=== PATIENT | female | born 1995 ===

== ENCOUNTER 2016-07-20 15:18 | Emergency (ER) | payer MEDICAID ==
[2016-07-20 15:19] VITALS: BMI 24.0
[2016-07-20 16:31] LABS: BASO # 0.1 K/uL (0.0-0.2); BASO % 0.9 % (0.0-2.0); EOS # 0.1 K/uL (0.0-0.7); EOS % 1.6 % (0.0-4.0); HEMATOCRIT 32.7 % (34.0-47.0); LYMPH # 1.6 K/uL (1.0-4.3); LYMPH % 28.1 % (20.0-40.0); MEAN CELL VOLUME 92.9 fl (81.0-99.0); MEAN CORPUSCULAR HEMOGLOBIN 30.6 pg (27.0-31.0); MEAN PLATELET VOLUME 8.8 fl (7.2-11.7); MONO # 0.4 K/uL (0.0-0.8); MONO % 7.7 % (0.0-10.0); NEUT # 3.4 K/uL (1.8-7.0); NEUT % 61.7 % (50.0-75.0); RED CELL DISTRIBUTION WIDTH 12.3 % (11.5-14.5); WHITE BLOOD COUNT 5.6 K/uL (4.8-10.8)
[2016-07-20 16:46] LABS: ALB/GLOB RATIO 1.3 (1.0-2.1); ALKALINE PHOSPHATASE 71 U/L (38-126); ALT/SGPT 28 U/L (9-52); AST/SGOT 19 U/L (14-36); BILIRUBIN,TOTAL 0.3 mg/dl (0.2-1.3); BLOOD UREA NITROGEN 12 mg/dl (7-17); CALCIUM 9.2 mg/dL (8.4-10.2); CARBON DIOXIDE 25 mmol/L (22-30); CHLORIDE 105 mmol/L (98-107); GFR AFRICAN-AMERICAN > 60; GLUCOSE,RANDOM 113 mg/dL (65-105); LIPASE 47 U/L (23-300); POTASSIUM 3.3 MMOL/L (3.6-5.0); SODIUM 140 mmol/l (132-148); TOTAL PROTEIN 6.9 G/DL (6.3-8.2)
--- NOTE | 2016-07-20 16:49 | ED PDOC ---
HPI: Chest Pain Time Seen by Provider: 07/20/16 15:43 Chief Complaint (Nursing): Chest Pain Chief Complaint (Provider): Chest Pain History Per: Patient History/Exam Limitations: no limitations Onset/Duration Of Symptoms: Days (x3 days) Current Symptoms Are (Timing): Still Present Additional Complaint(s): 20 y/o female presents to the emergency department with a complaint of a left- sided chest pain and shortness of breath ongoing x3 days. Associated with mild nasal congestion and a muffled voice. Reports pain radiates from the upper chest down to the left upper quadrant of the abdomen region and left side of the back. Described shortness of breath worsens when she exerts herself and pleuritic when she takes a deep breath. denies cough and fever. Denies leg swelling, recent surgeries, or immobilization. Of note, patient had an upper respiratory infection (cough/cold) about 2 weeks ago that she feels she had gotten better. PMD: Dr. Troncoso Past Medical History Reviewed: Historical Data, Nursing Documentation, Vital Signs Vital Signs: Last Vital Signs Temp 98.2 F 07/20/16 15:34 Pulse 88 07/20/16 15:34 Resp 20 07/20/16 15:34 BP 108/59 L 07/20/16 15:34 Pulse Ox 99 07/20/16 19:42 - Medical History PMH: Kidney Stones, Chronic Kidney Disease (1 functional kidney - left) Denies: HIV - Surgical History Other surgeries: Bicornuate uterus repaired same time ovarian cyst resection and single kidney; stones in past that required stent (Left side) - Family History Family History: States: Unknown Family Hx - Social History Current smoker - smoking cessation education provided: Yes ("vapes") Alcohol: Occasional Drugs: Denies - Home Medications Home Medications: Ambulatory Orders Medication Instructions Recorded Ciprofloxacin HCl [Cipro] 500 mg PO BID #14 tab 01/06/15 oxyCODONE/Acetaminophen [Percocet 1 ea PO Q4 PRN #20 tab 01/06/15 5/325 mg Tab] Ondansetron [Zofran] 4 mg PO Q8H PRN #5 tab 05/30/15 Naproxen [Naprosyn] 1 tab PO BID PRN #60 tab 11/16/15 oxyCODONE/Acetaminophen [Percocet 1 tab PO QID PRN #20 tab 11/16/15 5/325 mg Tab] Lidocaine 5% [Lidoderm] 1 ea TD DAILY #30 patch 12/13/15 traMADol [Ultram] 50 mg PO Q6 PRN #25 tab 12/13/15 Famotidine [Pepcid] 20 mg PO Q12 #20 tab 03/18/16 Sulfamethoxazole/Trimethoprim 1 tab PO BID #20 tab 03/18/16 [Bactrim DS 800 mg-160 mg] Cyclobenzaprine [Flexeril] 5 mg PO Q8 PRN #10 tab 07/20/16 Naproxen [Naprosyn] 1 tab PO BID PRN #60 tab 07/20/16 - Allergies Allergies/Adverse Reactions: Allergies Allergy/AdvReac Type Severity Reaction Status Date / Time No Known Allergies Allergy Verified 05/29/15 17:48 Review of Systems ROS Statement: Except As Marked, All Systems Reviewed And Found Negative Constitutional: Negative for: Fever ENT: Positive for: Nose Congestion Cardiovascular: Positive for: Chest Pain (Left-sided; upper region) Respiratory: Positive for: Shortness of Breath. Negative for: Cough Gastrointestinal: Positive for: Abdominal Pain (LUQ) Musculoskeletal: Positive for: Back Pain (left sided upper region back pain). Negative for: Other (No leg swelling) Physical Exam - Reviewed Nursing Documentation Reviewed: Yes Vital Signs Reviewed: Yes - Physical Exam Appears: Positive for: Non-toxic, No Acute Distress (Tired appearing) Head Exam: Positive for: ATRAUMATIC, NORMOCEPHALIC Skin: Positive for: Normal Color, Warm, Dry ENT: Positive for: Normal ENT Inspection. Negative for: Pharyngeal Erythema Neck: Positive for: Normal, Supple Cardiovascular/Chest: Positive for: Regular Rate, Rhythm. Negative for: Murmur , Bradycardia Respiratory: Positive for: Normal Breath Sounds. Negative for: Accessory Muscle Use, Respiratory Distress Gastrointestinal/Abdominal: Positive for: Normal Exam, Soft. Negative for: Tenderness Back: Positive for: Normal Inspection. Negative for: L CVA Tenderness, R CVA Tenderness Extremity: Positive for: Normal ROM. Negative for: Pedal Edema Lymphatic: Negative for: Adenopathy Neurologic/Psych: Positive for: Alert, Oriented. Negative for: Motor/Sensory Deficits - Laboratory Results Result Diagrams: 07/20/16 16:00 07/20/16 16:00 - ECG ECG: Positive for: Interpreted By Me ECG Rhythm: Positive for: Normal QRS, Normal ST Segment, Sinus Rhythm O2 Sat by Pulse Oximetry: 99 (RA) Pulse Ox Interpretation: Normal Medical Decision Making Medical Decision Making: Time: 15:53 Initial impression: Left sided chest Pain differential include pneumonia, pulmonary embolism, congestive heart failure, pneumothorax, Renal calculi and costochondritis Initial plan: --Electrocardiogram Stat --B-Type Natriuretic Peptide --COMP Metabolic Panel --Drug Screen, Urine stat --Lipase Stat --Magnesium Stat --Phosphorous STAT --Troponin I Stat --ED Urine Dipstick (POC) --ED Urine (POC) --EKG-ED (EDNURTX) STAT --CBC w/ differential --D Dimer (COAG) Stat --Chest Two Views (PA/LAT) --Toradol 15 mg IV Stat --IV Insertion --Renal (US) Stat --Revaluation Ek bpm normal sinus non specific T waves abnormalities with incomplete right bundle branch block (RBB) Accession No. : [id number] Patient Name / ID : DARI STANFORD / [id number] Exam Date : 07/20/2016 17:34:38 ( Approved ) Study Comment : Sex / Age : F / 20Y Creator : Stephan Ayala Dictator : Stephan Ayala Deckhand Maintenance : Certified Pedorthotist : Stephan Ayala Approver2 : Report Date : 07/20/2016 18:31:33 My Comment : PROCEDURE: Ultrasound of the Kidneys HISTORY: LEFT flank pain COMPARISON: Comparison is made to the previous CT of the abdomen and pelvis dated 2016. TECHNIQUE: Sonogram of the kidneys. FINDINGS: RIGHT KIDNEY: The right kidney was also not visualized in this study . LEFT KIDNEY: Measures: 14.4 x 4.8 x 6.7 cm. Normal in size, contour and echogenicity. No stone, solid mass lesion or hydronephrosis visualized. OTHER FINDINGS: None. 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 Compensated mildly enlarged left kidney. No evidence of hydronephrosis or obstructing stone. Accession No. : [id number] Patient Name / ID : DARI STANFORD / [id number] Exam Date : 07/20/2016 17:09:56 ( Approved ) Study Comment : Sex / Age : F / 20Y Creator : Adbi Lima MD Dictator : Abdi Lima MD Deckhand Maintenance : Certified Pedorthotist : Abdi Lima MD Approver2 : Report Date : 07/20/2016 17:23:59 My Comment : HISTORY: cp COMPARISON: Comparison chest dated 01/03/2015. TECHNIQUE: Chest PA and lateral FINDINGS: LUNGS: No active pulmonary disease. PLEURA: No significant pleural effusion identified. No pneumothorax apparent. CARDIOVASCULAR: Normal. OSSEOUS STRUCTURES: Very minor multilevel degenerative spondylosis of the mid thoracic spine. There also appears be some levoscoliosis centered in the lower thoracic region. Dedicated scoliosis series suggested. VISUALIZED UPPER ABDOMEN: Normal. OTHER FINDINGS: None. IMPRESSION: No acute cardiopulmonary disease. See above discussion for additional findings details and recommendations. Labs demonstrate mild hypokalemia and anemia. Otherwise no clinically significant lab abnormalities. DW pt findings and plan of care. Scribe Attestation: Documented by Lakshmi Young, acting as a scribe for Ivania Garcia MD. Provider Scribe Attestation: All medical record entries made by the Scribe were at my direction and personally dictated by me. I have reviewed the chart and agree that the record accurately reflects my personal performance of the history, physical exam, medical decision making, and the department course for this patient. I have also personally directed, reviewed, and agree with the discharge instructions and disposition. Disposition - Clinical Impression Clinical Impression: Chest pain, Hypokalemia, Anemia Counseled Patient/Family Regarding: Studies Performed, Diagnosis, Need For Followup, Rx Given - Disposition Referrals: Gertrude Troncoso MD [Family Provider] - 07/23/16 (SEE DR TRONCOSO EARLY NEXT WEEK.) Disposition: Routine/Home Disposition Time: 20:00 Condition: IMPROVED Prescriptions: Cyclobenzaprine [Flexeril] 5 mg PO Q8 PRN #10 tab PRN Reason: muscle spasm Naproxen [Naprosyn] 1 tab PO BID PRN #60 tab PRN Reason: Pain Instructions: Costochondritis (ED), Anemia (ED), Hypokalemia (ED) Forms: [facility] School/Work Excuse
--- NOTE | 2016-07-20 17:25 | RAD ---
HISTORY: cp COMPARISON: Comparison chest dated 01/03/2015. TECHNIQUE: Chest PA and lateral FINDINGS: LUNGS: No active pulmonary disease. PLEURA: No significant pleural effusion identified. No pneumothorax apparent. CARDIOVASCULAR: Normal. OSSEOUS STRUCTURES: Very minor multilevel degenerative spondylosis of the mid thoracic spine. There also appears be some levoscoliosis centered in the lower thoracic region. Dedicated scoliosis series suggested. VISUALIZED UPPER ABDOMEN: Normal. OTHER FINDINGS: None. IMPRESSION: No acute cardiopulmonary disease. See above discussion for additional findings details and recommendations.
[2016-07-20 17:38] LABS: PHOSPHOROUS 4.1 mg/dl (2.5-4.5)
[2016-07-20] MEDS ORDERED: K-Lyte 25meq EF Tab PO ONE ×2 (18:09→19:39)
--- NOTE | 2016-07-20 18:33 | US ---
PROCEDURE: Ultrasound of the Kidneys HISTORY: LEFT flank pain COMPARISON: Comparison is made to the previous CT of the abdomen and pelvis dated 03/18/2016. TECHNIQUE: Sonogram of the kidneys. FINDINGS: RIGHT KIDNEY: The right kidney was also not visualized in this study . LEFT KIDNEY: Measures: 14.4 x 4.8 x 6.7 cm. Normal in size, contour and echogenicity. No stone, solid mass lesion or hydronephrosis visualized. OTHER FINDINGS: None. 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 Compensated mildly enlarged left kidney. No evidence of hydronephrosis or obstructing stone.
[2016-07-20 21:27] VITALS: BP 119/67; PULSE 74; RESP 16; TEMP 98.4; O2SAT 98
--- NOTE | 2016-07-22 00:20 | CARD ---
APPROVED REPORT EKG Measurement Heart [id number] <Conclusion> Normal sinus rhythm Possible Left atrial enlargement Incomplete right bundle branch block Nonspecific T wave abnormality Prolonged QT Abnormal ECG
== END 2016-07-20 21:24 | disposition home or self-care (01) ==
LOC: H.ER 15:18
DX: R07.9 Chest pain, unspecified (principal); E87.6 Hypokalemia; D64.9 Anemia, unspecified; N18.9 Chronic kidney disease, unspecified; F17.200 Nicotine dependence, unspecified, uncomplicated; I45.10 Unspecified right bundle-branch block; R06.02 Shortness of breath

== ENCOUNTER 2016-08-31 08:56 | Emergency (ER) | payer MEDICAID ==
[2016-08-31 08:57] VITALS: BMI 24.0
[2016-08-31 10:22] LABS: HEMOGLOBIN 12.1 g/dL (12.0-16.0); MEAN CELL VOLUME 91.3 fl (81.0-99.0); MEAN CORPUSCULAR HEMOGLOBIN 30.9 pg (27.0-31.0); MEAN CORPUSCULAR HGB CONC 33.8 g/dL (33.0-37.0); RBC 3.93 Mil/uL (3.80-5.20); RED CELL DISTRIBUTION WIDTH 12.8 % (11.5-14.5); WHITE BLOOD COUNT 6.5 K/uL (4.8-10.8)
[2016-08-31 10:34] LABS: ALB/GLOB RATIO 1.4 (1.0-2.1); ALBUMIN 4.2 g/dL (3.5-5.0); ALT/SGPT 32 U/L (9-52); AST/SGOT 17 U/L (14-36); BLOOD UREA NITROGEN 9 mg/dl (7-17); CALCIUM 9.5 mg/dL (8.4-10.2); GFR AFRICAN-AMERICAN > 60; GFR NON-AFRICAN AMERICAN > 60
--- NOTE | 2016-08-31 10:47 | ED PDOC ---
HPI: Female Pain Time Seen by Provider: 08/31/16 09:48 Chief Complaint (Nursing): Female Genitourinary Chief Complaint (Provider): suprapubic pain History Per: Patient History/Exam Limitations: no limitations Onset/Duration Of Symptoms: Intermittent Episodes Current Symptoms Are (Timing): Still Present Severity: Severe Pain Scale Rating Of: 8 Quality Of Discomfort: Other (pulling) Associated Symptoms: Nausea. denies: Fever, Chills, Vomiting, Diarrhea, Loss Of Appetite, Urinary Symptoms Additional Complaint(s): 20 yo F presents to the ED with a 4 day history of lower abdominal pain for the previous day. Pain is described as 8/10, a pulling sensation, localized to a midline suprapubic scar that is non radiating. She also shares that she feels "bloated" which she also associates to her pain. She states feeling nauseous since the pain began. Aggravating factors include bearing down, lifting heavy objects; Alleviating factor was Naproxen, however, she shares that medication has been wearing off after a few hours and only minimally helped. She denies fevers/chills, vomiting, diarrhea, constipation, diaphoresis , vaginal discharge, history of sti, incontinence, foul odor. She is sexually active and shares of using protection consistently. She has a history of lower abdominal surgery for pain at the age of 13, but due to an unknown cause. She also has an atrophied R kidney. Since then, she has shared of similar pain. Menses was proximately 14 days ago and regular. However, she shares that her abdominal pain has not been associated with her menses. Last was 2 years ago. No abnormalities during gestation and no complications throughout delivery. bundle breaker: last seen 1 year ago. No longer her provider due to insurance. ([employer]) Abnormal Vaginal Bleeding: No Last Menstral Period: 08/15/16 : 1 Para: 1 Past Medical History Reviewed: Historical Data, Nursing Documentation, Vital Signs Vital Signs: Last Vital Signs Temp 98.8 F 08/31/16 09:19 Pulse 95 H 08/31/16 09:19 Resp 18 08/31/16 09:19 BP 118/64 08/31/16 09:19 Pulse Ox 99 08/31/16 09:19 - Medical History PMH: Kidney Stones, Chronic Kidney Disease (1 functional kidney - left) Denies: HIV - Family History Family History: States: Unknown Family Hx - Home Medications Home Medications: Ambulatory Orders Medication Instructions Recorded Ciprofloxacin HCl [Cipro] 500 mg PO BID #14 tab 01/06/15 oxyCODONE/Acetaminophen [Percocet 1 ea PO Q4 PRN #20 tab 01/06/15 5/325 mg Tab] Ondansetron [Zofran] 4 mg PO Q8H PRN #5 tab 05/30/15 Naproxen [Naprosyn] 1 tab PO BID PRN #60 tab 11/16/15 oxyCODONE/Acetaminophen [Percocet 1 tab PO QID PRN #20 tab 11/16/15 5/325 mg Tab] Lidocaine 5% [Lidoderm] 1 ea TD DAILY #30 patch 12/13/15 traMADol [Ultram] 50 mg PO Q6 PRN #25 tab 12/13/15 Famotidine [Pepcid] 20 mg PO Q12 #20 tab 03/18/16 Sulfamethoxazole/Trimethoprim 1 tab PO BID #20 tab 03/18/16 [Bactrim DS 800 mg-160 mg] Cyclobenzaprine [Flexeril] 5 mg PO Q8 PRN #10 tab 07/20/16 Naproxen [Naprosyn] 1 tab PO BID PRN #60 tab 07/20/16 Ibuprofen [Motrin Tab] 600 mg PO Q8H #25 tab 08/31/16 - Allergies Allergies/Adverse Reactions: Allergies Allergy/AdvReac Type Severity Reaction Status Date / Time No Known Allergies Allergy Verified 08/31/16 09:24 Review of Systems ROS Statement: Except As Marked, All Systems Reviewed And Found Negative (see HPI) Physical Exam - Reviewed Nursing Documentation Reviewed: Yes Vital Signs Reviewed: Yes - Physical Exam Appears: Positive for: Non-toxic, No Acute Distress Head Exam: Positive for: ATRAUMATIC, NORMOCEPHALIC Skin: Positive for: Normal Color, Warm, Dry Eye Exam: Positive for: Normal appearance, EOMI, PERRL Neck: Positive for: Normal, Painless ROM Cardiovascular/Chest: Positive for: Regular Rate, Rhythm. Negative for: Edema Respiratory: Positive for: Normal Breath Sounds. Negative for: Rales, Wheezing , Respiratory Distress Gastrointestinal/Abdominal: Positive for: Normal Exam, Soft, Tenderness (mild ) Pelvic Exam: Positive for: External Exam Normal, No Cerv. Motion Tender, No Masses, Tender Adnexa (Right), Other (minimal amount of white fluid seen). Negative for: Active Bleeding, Blood, Discharge Back: Negative for: L CVA Tenderness, R CVA Tenderness Extremity: Positive for: Normal ROM. Negative for: Pedal Edema, Calf Tenderness Neurologic/Psych: Positive for: Alert, executive vice president II-XII, Oriented - Laboratory Results Result Diagrams: 08/31/16 10:14 08/31/16 10:14 - ECG O2 Sat by Pulse Oximetry: 99 - Progress ED Course And Treament: 20 yo F presents to the ED with a 4 day history of lower abdominal pain for the previous day -CBC -CMP -Upreg -Udip -Pelvic U/S -L Renal U/S -Toradol 15mg IVP x1 Update 1230: -Pain improved Update 1300: -Renal U/S: no abnormalities seen -Transvaginal U/S: Uterus didelphys. No fibroids or other mass lesion seen. No significant endometrial abnormality identified. No sonographic abnormality in the pelvis. -To be discharged home Condition: Re-examined, Improved Disposition - Clinical Impression Clinical Impression: Abdominal cramps - Patient ED Disposition Is Patient to be Admitted: No - Disposition Disposition Time: 13:30 Condition: GOOD Additional Instructions: Continue with Ibuprofen as needed -Take w food. -Drink plenty of water per day. Follow up with [facility] within 1 week See PMD within 2-3 days of discharge Prescriptions: Ibuprofen [Motrin Tab] 600 mg PO Q8H #25 tab
--- NOTE | 2016-08-31 12:42 | US ---
PROCEDURE: Ultrasound of the Kidneys HISTORY: pelvic pain h/o 1 kidney COMPARISON: Ultrasound from 07/20/[address] abdomen and pelvis from 03/18/2016. TECHNIQUE: Sonogram of the kidneys. FINDINGS: RIGHT KIDNEY: Not visualized in the renal fossa. LEFT KIDNEY: Measures: 15.0 cm. Enlarged with normal contour and echogenicity. No stone, solid mass lesion or hydronephrosis visualized. OTHER FINDINGS: None. IMPRESSION: Right kidney is not visualized in the right renal fossa. Compensatory hypertrophy of the left kidney. No significant sonographic abnormality in the left kidney.
--- NOTE | 2016-08-31 13:03 | US ---
HISTORY: pelvic pain COMPARISON: 05/30/2015. TECHNIQUE: Transabdominal and transvaginal pelvic ultrasound was performed. FINDINGS: UTERUS: Again seen is the uterus didelphys. The right uterus measures 4.6 x 2.2 x 2.2 cm and the left uterus measures 7.0 x 4.0 x 3.4 cm. No fibroid or other mass lesion seen. ENDOMETRIUM: Right endometrial echo complex 5.3 mm in diameter. Left endometrial echo complex measures 5.3 mm. No significant abnormality identified. . CERVIX: No cervical abnormality identified. RIGHT OVARY: Measures 3.2 x 2.8 x 3.0 cm. No solid mass. Normal flow. LEFT OVARY: Measures 3.7 x 2.5 x 2.1 cm. No solid mass. Normal flow. FREE FLUID: No significant free fluid noted. OTHER FINDINGS: None. IMPRESSION: Uterus didelphys. No sonographic abnormality in the pelvis.
[2016-08-31 13:53] LABS: SQUAMOUS EPITHIAL 54 /hpf (0-5); URINE BACTERIA FEW (<OCC); URINE BILIRUBIN NEGATIVE (NEGATIVE); URINE BLOOD SMALL (NEGATIVE); URINE CLARITY CLOUDY (Clear); URINE COLOR YELLOW (YELLOW); URINE GLUCOSE (UA) NEG (Normal); URINE LEUKOCYTE ESTERASE MOD Leu/uL (Negative); URINE NITRATE NEGATIVE (NEGATIVE); URINE PROTEIN 100 mg/dL (NEGATIVE); URINE UROBILINOGEN 0.2-1.0 mg/dL (0.2-1.0)
[2016-08-31 14:04] VITALS: BP 120/78; PULSE 78; RESP 20; TEMP 97.6; O2SAT 98
== END 2016-08-31 14:04 | disposition home or self-care (01) ==
LOC: H.ER 08:56
DX: R10.9 Unspecified abdominal pain (principal); N18.9 Chronic kidney disease, unspecified; R11.0 Nausea

== ENCOUNTER 2016-09-30 03:05 | Emergency (ER) | payer MEDICAID ==
[2016-09-30 03:05] VITALS: BMI 24.0
[2016-09-30 03:20] VITALS: BP 116/71; RESP 18; TEMP 98; O2SAT 98
--- NOTE | 2016-09-30 04:06 | ED PDOC ---
HPI: Abdomen Time Seen by Provider: 09/30/16 03:23 Chief Complaint (Nursing): Abdominal Pain Chief Complaint (Provider): Abdominal Pain History Per: Patient History/Exam Limitations: no limitations Onset/Duration Of Symptoms: Hrs Location Of Pain/Discomfort: LUQ, LLQ Additional Complaint(s): Shelby Astudillo presents to the ED for a chief complaint of abdominal pain. Patient states she was having anal sex with her last night at 6:00 pm but didn't use any form of lubricant. Reports 1 episode of vomiting, along with rectal bleeding and left upper and lower quadrant pain since intercourse. Of note, patient experiences pain when she goes to the bathroom. PMD: None Past Medical History Reviewed: Historical Data, Nursing Documentation, Vital Signs Vital Signs: Last Vital Signs Temp 98 F 09/30/16 03:14 Pulse 114 H 09/30/16 03:14 Resp 18 09/30/16 03:14 BP 116/71 09/30/16 03:14 Pulse Ox 98 09/30/16 04:16 - Medical History PMH: Kidney Stones, Chronic Kidney Disease (1 functional kidney - left) Denies: HIV - Surgical History Surgical History: No Surg Hx - Family History Family History: States: Unknown Family Hx - Home Medications Home Medications: Ambulatory Orders Medication Instructions Recorded Ciprofloxacin HCl [Cipro] 500 mg PO BID #14 tab 01/06/15 oxyCODONE/Acetaminophen [Percocet 1 ea PO Q4 PRN #20 tab 01/06/15 5/325 mg Tab] Ondansetron [Zofran] 4 mg PO Q8H PRN #5 tab 05/30/15 Naproxen [Naprosyn] 1 tab PO BID PRN #60 tab 11/16/15 oxyCODONE/Acetaminophen [Percocet 1 tab PO QID PRN #20 tab 11/16/15 5/325 mg Tab] Lidocaine 5% [Lidoderm] 1 ea TD DAILY #30 patch 12/13/15 traMADol [Ultram] 50 mg PO Q6 PRN #25 tab 12/13/15 Famotidine [Pepcid] 20 mg PO Q12 #20 tab 03/18/16 Sulfamethoxazole/Trimethoprim 1 tab PO BID #20 tab 03/18/16 [Bactrim DS 800 mg-160 mg] Cyclobenzaprine [Flexeril] 5 mg PO Q8 PRN #10 tab 07/20/16 Naproxen [Naprosyn] 1 tab PO BID PRN #60 tab 07/20/16 Ibuprofen [Motrin Tab] 600 mg PO Q8H #25 tab 08/31/16 Docusate Sodium [Dulcolax Stool 100 mg PO DAILY #12 capsule 09/30/16 Softener] - Allergies Allergies/Adverse Reactions: Allergies Allergy/AdvReac Type Severity Reaction Status Date / Time No Known Allergies Allergy Verified 09/30/16 03:14 Review of Systems ROS Statement: Except As Marked, All Systems Reviewed And Found Negative Gastrointestinal: Positive for: Vomiting (1 episode of vomiting.), Abdominal Pain (Abdominal pain in the left upper and lower quadrants.), Other (Rectal bleeding.) Physical Exam - Reviewed Nursing Documentation Reviewed: Yes Vital Signs Reviewed: Yes - Physical Exam Appears: Positive for: Well, Non-toxic, No Acute Distress Head Exam: Positive for: ATRAUMATIC, NORMAL INSPECTION, NORMOCEPHALIC Skin: Positive for: Normal Color Eye Exam: Positive for: Normal appearance, EOMI, PERRL ENT: Positive for: Normal ENT Inspection Neck: Positive for: Normal, Painless ROM, Supple Cardiovascular/Chest: Positive for: Regular Rate, Rhythm. Negative for: Murmur , Tachycardia Respiratory: Positive for: Normal Breath Sounds. Negative for: Wheezing, Respiratory Distress Gastrointestinal/Abdominal: Positive for: Tenderness (Mild Left upper and lower quadrant tenderness.). Negative for: Normal Exam Back: Positive for: Normal Inspection Rectal: Positive for: Hemorrhoids (Palpable internal hemorrhoids.), Other (Andreina- rectal abrasions to the anal region. Scant bleeding.). Negative for: Normal Exam Extremity: Positive for: Normal ROM Lymphatic: Positive for: Deferred Neurologic/Psych: Positive for: Alert, Oriented - ECG O2 Sat by Pulse Oximetry: 98 (RA) Pulse Ox Interpretation: Normal Medical Decision Making Medical Decision Making: Time: 322: Initial Impression: 21 year old female with anal trauma, status post anal sex. Initial Plan: * Abdomen multiple view (w/ OBL) * Occult blood stool, ER 6AM Pt. states abd pain significantly improved. Gave viscous lidocaine to apply to andreina-rectal abrasions to aid in passage of BMs and also stool softeners. Return precautions given. Scribe Attestation: Documented by Stormy Eric acting as a scribe for Milton Salvador MD. Provider Scribe Attestation: All medical record entries made by the Scribe were at my direction and personally dictated by me. I have reviewed the chart and agree that the record accurately reflects my personal performance of the history, physical exam, medical decision making, and the department course for this patient. I have also personally directed, reviewed, and agree with the discharge instructions and disposition. Disposition - Clinical Impression Clinical Impression: Abdominal pain - Disposition Referrals: [facility] [Outside] Disposition: Routine/Home Disposition Time: 06:00 Condition: STABLE Prescriptions: Docusate Sodium [Dulcolax Stool Softener] 100 mg PO DAILY #12 capsule Instructions: Safe Sex (ED), Acute Abdominal Pain (ED) Forms: [facility] ([place] [employer])
[2016-09-30 06:43] VITALS: PULSE 87
--- NOTE | 2016-09-30 09:29 | RAD ---
HISTORY: LLQ/LLQ pain after anal intercourse COMPARISON: No prior. FINDINGS: BOWEL: Normal. No obstruction. No free air. BONES: Normal. OTHER FINDINGS: None. IMPRESSION: No active disease.
== END 2016-09-30 06:27 | disposition home or self-care (01) ==
LOC: H.ER 03:05
DX: R10.12 Left upper quadrant pain (principal); N18.9 Chronic kidney disease, unspecified

== ENCOUNTER 2016-10-01 18:52 | Emergency (ER) | payer MEDICAID ==
[2016-10-01 18:52] VITALS: BMI 24.0
--- NOTE | 2016-10-01 20:39 | ED PDOC ---
HPI: Fever Fever Onset Was: 09/30/16 What Antipyretic Given Prior To Arrival: Ibuprofen Recent Sick Contacts: No Have you had recent travel within the past 21 days to any of the following countries: [place], [place], [place] or [place]?: No Does Patient Have Hx Of Febrile Seizures: No Did The Patient Have A Seizure Today: No Symptoms Associated With Fever: Other (generalized weakness) Additional Comments: 21 year old female with no pertinent medical history presents to the ED with complaints of generalized weakness that started this morning when she woke up (12x hours prior to arrival). She reports that last night she had a fever, and woke up once in the middle of the night feeling numbness over her whole body (which has since resolved). She reports having associated symptoms of vomiting, nausea, progresssive (not thunderclap)headaches , and a sore throat. she notes the headache has been going onfor about a year. has had history of headaches. She reports taking ibuprofen with no relief. She denies having diarrhea. Patient states that she was in the ED last night for hemorrhoids and was discharged home with a prescription for laxatives but has not taken them. PMD: Gertrude Campoverde MD Past Medical History Reviewed: Historical Data, Nursing Documentation, Vital Signs Vital Signs: Last Vital Signs Temp 99.7 F H 10/02/16 02:29 Pulse 127 H 10/02/16 02:29 Resp 16 10/02/16 02:29 BP 115/62 10/01/16 22:41 Pulse Ox 99 10/02/16 02:29 - Medical History PMH: Kidney Stones Denies: HIV Other PMH: patient has 1 kidney (left). 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 bicornuate uterus - Surgical History Other surgeries: bicornuate uterus surgery - Family History Family History: States: Unknown Family Hx - Living Arrangements Living Arrangements: With Family - Social History Current smoker - smoking cessation education provided: No Alcohol: None Drugs: Cannabis - Home Medications Home Medications: Ambulatory Orders Medication Instructions Recorded Ciprofloxacin HCl [Cipro] 500 mg PO BID #14 tab 01/06/15 oxyCODONE/Acetaminophen [Percocet 1 ea PO Q4 PRN #20 tab 01/06/15 5/325 mg Tab] Ondansetron [Zofran] 4 mg PO Q8H PRN #5 tab 05/30/15 Naproxen [Naprosyn] 1 tab PO BID PRN #60 tab 11/16/15 oxyCODONE/Acetaminophen [Percocet 1 tab PO QID PRN #20 tab 11/16/15 5/325 mg Tab] Lidocaine 5% [Lidoderm] 1 ea TD DAILY #30 patch 12/13/15 traMADol [Ultram] 50 mg PO Q6 PRN #25 tab 12/13/15 Famotidine [Pepcid] 20 mg PO Q12 #20 tab 03/18/16 Sulfamethoxazole/Trimethoprim 1 tab PO BID #20 tab 03/18/16 [Bactrim DS 800 mg-160 mg] Cyclobenzaprine [Flexeril] 5 mg PO Q8 PRN #10 tab 07/20/16 Naproxen [Naprosyn] 1 tab PO BID PRN #60 tab 07/20/16 Ibuprofen [Motrin Tab] 600 mg PO Q8H #25 tab 08/31/16 Docusate Sodium [Dulcolax Stool 100 mg PO DAILY #12 capsule 09/30/16 Softener] Nitrofurantoin Macrocrystals 100 mg PO BID #14 cap 10/02/16 [Macrobid] - Allergies Allergies/Adverse Reactions: Allergies Allergy/AdvReac Type Severity Reaction Status Date / Time No Known Allergies Allergy Verified 09/30/16 03:14 Review of Systems ROS Statement: Except As Marked, All Systems Reviewed And Found Negative Constitutional: Positive for: Fever, Chills, Weakness, Malaise, Other ( generalized bodyaches and weakness) ENT: Positive for: Throat Pain Gastrointestinal: Positive for: Nausea, Vomiting. Negative for: Diarrhea Neurological: Positive for: Headache Physical Exam - Reviewed Nursing Documentation Reviewed: Yes Vital Signs Reviewed: Yes - Physical Exam Appears: Positive for: Non-toxic, Uncomfortable (generalized weakness), In Acute Distress Head Exam: Positive for: ATRAUMATIC, NORMOCEPHALIC Skin: Positive for: Normal Color, Warm, Dry Eye Exam: Positive for: Normal appearance ENT: Positive for: Pharynx Is (clear), Other (dry mucous membranes) Cardiovascular/Chest: Positive for: Regular Rate, Rhythm Respiratory: Positive for: Normal Breath Sounds. Negative for: Respiratory Distress Gastrointestinal/Abdominal: Positive for: Normal Exam, Soft. Negative for: Tenderness Back: Positive for: Normal Inspection. 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 Negative for : Motor/Sensory Deficits - Laboratory Results Result Diagrams: 10/01/16 20:51 10/01/16 20:51 - ECG O2 Sat by Pulse Oximetry: 100 (RA) Pulse Ox Interpretation: Normal Medical Decision Making Medical Decision Makin:01 Initial impression: 21 year old female with generalized weakness, bodyaches, and a fever. Initial plan: * beta hcg quatitative * CMP * CBC * toradol 30mg IVP * reevaluation 23:38 Labs reviewed and indicate a UTI. 01:35 Patient reports the real reason for her visit today was because she has been having headaches for the past year. She states she gets the headaches when "stressed out" and yelling at her daughter. Patient requesting CT Head. 0218 CT Head FINDINGS: Brain: No intracranial hemorrhage. No mass. No definite edema. Ventricles: No hydrocephalus. Bones/joints: No acute fracture. Soft tissues: Unremarkable. Sinuses: No acute sinusitis. Mastoid air cells: No mastoid effusion. Orbits: Unremarkable as visualized. IMPRESSION: 1. No acute intracranial abnormality. 2. Incidental/non-acute findings are described above. pt complaining of headache, so ordered more medication however upon entering room pt sleeping comfortably Patient offered an LP to rule out meningitis and discussed risks and benefits of the procedure. Patient refused the procedure stating she also refused the epidural for her daughter. pt instructed to follow up with primary doctor/referral to neurologist return to the ED w any worsening or concerning symptoms. Scribe Attestation: Documented by Sulma Nunez, acting as a scribe for Yusef Garnica MD. Provider Scribe Attestation: All medical record entries made by the Scribe were at my direction and personally dictated by me. I have reviewed the chart and agree that the record accurately reflects my personal performance of the history, physical exam, medical decision making, and the department course for this patient. I have also personally directed, reviewed, and agree with the discharge instructions and disposition. Disposition - Clinical Impression Clinical Impression: Fever, UTI (urinary tract infection) - Patient ED Disposition Is Patient to be Admitted: No Counseled Patient/Family Regarding: Studies Performed, Diagnosis, Need For Followup - Disposition Referrals: [facility] [Outside] [facility] [Outside] Disposition: Routine/Home Disposition Time: 02:20 Condition: IMPROVED Additional Instructions: follow up with your primary doctor in 1-2 days return to the ED with any worsening or concerning symptoms. Prescriptions: Nitrofurantoin Macrocrystals [Macrobid] 100 mg PO BID #14 cap Instructions: Urinary Tract Infection in Women (ED), Fever in Adults (ED) Forms: [facility] (Singaporean)
[2016-10-01 20:56] LABS: BASO # 0.1 K/uL (0.0-0.2); BASO % 0.5 % (0.0-2.0); HEMATOCRIT 35.7 % (34.0-47.0); LYMPH # 1.1 K/uL (1.0-4.3); LYMPH % 9.4 % (20.0-40.0); MEAN CELL VOLUME 91.4 fl (81.0-99.0); MEAN CORPUSCULAR HGB CONC 32.8 g/dL (33.0-37.0); MEAN PLATELET VOLUME 8.1 fl (7.2-11.7); MONO # 0.7 K/uL (0.0-0.8); MONO % 6.3 % (0.0-10.0); NEUT # 9.6 K/uL (1.8-7.0); NEUT % 83.8 % (50.0-75.0); PLATELET COUNT 293 K/uL (130-400); RED CELL DISTRIBUTION WIDTH 12.8 % (11.5-14.5); WHITE BLOOD COUNT 11.4 K/uL (4.8-10.8)
[2016-10-01 21:15] LABS: ALB/GLOB RATIO 1.3 (1.0-2.1); ALKALINE PHOSPHATASE 71 U/L (38-126); ALT/SGPT 29 U/L (9-52); AST/SGOT 27 U/L (14-36); BILIRUBIN,TOTAL 0.9 mg/dl (0.2-1.3); BLOOD UREA NITROGEN 11 mg/dl (7-17); CALCIUM 9.4 mg/dL (8.4-10.2); CARBON DIOXIDE 26 mmol/L (22-30); CHLORIDE 102 mmol/L (98-107); GFR AFRICAN-AMERICAN > 60; GLUCOSE,RANDOM 99 mg/dL (65-105); SODIUM 138 mmol/l (132-148); TOTAL PROTEIN 7.9 G/DL (6.3-8.2)
[2016-10-01 21:16] LABS: POTASSIUM 4.1 MMOL/L (3.6-5.0)
[2016-10-01 21:22] LABS: RBC URINE 11 /hpf (0-3); URINE BACTERIA RARE (<OCC); URINE BILIRUBIN NEGATIVE (NEGATIVE); URINE BLOOD SMALL (NEGATIVE); URINE COLOR YELLOW (YELLOW); URINE GLUCOSE (UA) NEG (Normal); URINE KETONE NEGATIVE (NEGATIVE); URINE LEUKOCYTE ESTERASE MOD Leu/uL (Negative); URINE PROTEIN 100 mg/dL (NEGATIVE); URINE UROBILINOGEN 0.2-1.0 mg/dL (0.2-1.0); WBC URINE 48 /hpf (0-5)
[2016-10-01 21:51] LABS: BASOPHIL 1 % (0-2); NEUTROPHIL 81 % (42-75); TOTAL CELLS COUNTED 100
[2016-10-01 22:02] LABS: LARGE PLATELETS PRESENT
[2016-10-01] MEDS ORDERED: Oxycodone/Acetaminophen 5/325 mg Tab ONE (22:04)
[2016-10-01] MEDS: Oxycodone/Acetaminophen 5/325 mg Tab PO ONE (22:05)
[2016-10-01] MEDS: Sodium Chloride 0.9% 1,000 ML IV STA (22:52)
--- NOTE | 2016-10-02 02:12 | CT ---
EXAM: CT Head Without Intravenous Contrast CLINICAL HISTORY: 21 years old, female; Pain; Headache TECHNIQUE: Axial computed tomography images of the head/brain without intravenous contrast. This CT exam was performed using one or more of the following dose reduction techniques: automated exposure control, adjustment of the mA and/or kV according to patient size, and/or use of iterative reconstruction technique. Coronal and sagittal reformatted images were created and reviewed. COMPARISON: No relevant prior studies available. FINDINGS: Brain: No intracranial hemorrhage. No mass. No definite edema. Ventricles: No hydrocephalus. Bones/joints: No acute fracture. Soft tissues: Unremarkable. Sinuses: No acute sinusitis. Mastoid air cells: No mastoid effusion. Orbits: Unremarkable as visualized. IMPRESSION: 1. No acute intracranial abnormality. 2. Incidental/non-acute findings are described above.
[2016-10-02 02:29] VITALS: TEMP 99.7
[2016-10-02 03:19] VITALS: BP 110/72; PULSE 107; RESP 18
[2016-10-02 05:37] VITALS: O2SAT 100
== END 2016-10-02 03:30 | disposition home or self-care (01) ==
LOC: H.ER 18:52
DX: N39.0 Urinary tract infection, site not specified (principal)

== ENCOUNTER 2017-02-16 13:50 | Emergency (ER) | payer MEDICAID ==
[2017-02-16 13:50] VITALS: BMI 24.0
[2017-02-16 14:08] VITALS: TEMP 98.8
[2017-02-16] MEDS ORDERED: Sodium Chloride 0.9% 1,000 ML IV STA (14:54)
[2017-02-16 16:10] LABS: BASO % 0.2 % (0.0-2.0); EOS # 0.1 K/uL (0.0-0.7); EOS % 0.5 % (0.0-4.0); LYMPH # 0.6 K/uL (1.0-4.3); LYMPH % 5.9 % (20.0-40.0); MEAN CELL VOLUME 92.1 fl (81.0-99.0); MEAN CORPUSCULAR HEMOGLOBIN 30.5 pg (27.0-31.0); MEAN CORPUSCULAR HGB CONC 33.1 g/dL (33.0-37.0); MEAN PLATELET VOLUME 9.3 fl (7.2-11.7); MONO # 0.4 K/uL (0.0-0.8); MONO % 3.5 % (0.0-10.0); NEUT # 9.5 K/uL (1.8-7.0); NEUT % 89.9 % (50.0-75.0); PLATELET COUNT 260 K/uL (130-400); WHITE BLOOD COUNT 10.6 K/uL (4.8-10.8)
[2017-02-16 16:20] LABS: ALB/GLOB RATIO 1.4 (1.0-2.1); ALKALINE PHOSPHATASE 69 U/L (38-126); ALT/SGPT 39 U/L (9-52); AST/SGOT 25 U/L (14-36); BILIRUBIN,TOTAL 0.6 mg/dl (0.2-1.3); BLOOD UREA NITROGEN 14 mg/dl (7-17); CALCIUM 9.2 mg/dL (8.4-10.2); CARBON DIOXIDE 25 mmol/L (22-30); CHLORIDE 104 mmol/L (98-107); GFR AFRICAN-AMERICAN > 60; GLUCOSE,RANDOM 96 mg/dL (65-105); LIPASE 59 U/L (23-300); POTASSIUM 4.3 MMOL/L (3.6-5.0); SODIUM 141 mmol/l (132-148); TOTAL PROTEIN 8.1 G/DL (6.3-8.2)
[2017-02-16 17:08] LABS: EOSINOPHIL 1 % (0-7); LARGE PLATELETS PRESENT; NEUTROPHIL 88 % (42-75); TOTAL CELLS COUNTED 100
[2017-02-16] MEDS ORDERED: Iohexol 300 100 ML IJ ONE (17:13)
[2017-02-16] MEDS ORDERED: Morphine 4 MG/ML VIAL ONE (17:15)
[2017-02-16] MEDS ORDERED: Morphine 4 MG/ML VIAL IVP STA (17:19)
[2017-02-16] MEDS ORDERED: Iodixanol 320 MG/ML 100 ML BOTTLE IV ONE (17:42)
[2017-02-16 18:22] VITALS: BP 105/66; PULSE 87; RESP 20; O2SAT 99
--- NOTE | 2017-02-16 18:37 | CT ---
PROCEDURE: CT Abdomen and Pelvis with contrast HISTORY: abdominal pain, diarrhea COMPARISON: Obstructed ultrasound 02/11/[address] without contrast 03/18/2016. TECHNIQUE: Contrast dose: Visipaque 320, 90 cc Radiation dose: Total exam DLP = 584.15 mGy-cm. This CT exam was performed using one or more of the following dose reduction techniques: Automated exposure control, adjustment of the mA and/or kV according to patient size, and/or use of iterative reconstruction technique. FINDINGS: LOWER THORAX: Unremarkable. LIVER: Marginal hepatic steatosis is seen diffusely. No parotid mass or ductal dilatation identified. GALLBLADDER AND BILE DUCTS: Unremarkable. PANCREAS: Unremarkable. No gross lesion or ductal dilatation. SPLEEN: Unremarkable. ADRENALS: Unremarkable. No mass. KIDNEYS AND URETERS: Unremarkable left kidney. Congenitally absent right kidney again evident. VASCULATURE: Unremarkable. No aortic aneurysm. BOWEL: Liquid fecal material seen at the ascending colon but not distally. No obstruction. No gross mural thickening. APPENDIX: Normal appendix. PERITONEUM: Unremarkable. No free fluid. No free air. LYMPH NODES: Unremarkable. No enlarged lymph nodes. BLADDER: Unremarkable. REPRODUCTIVE: Potentially uterine didelphys. BONES: No acute fracture. OTHER FINDINGS: None. IMPRESSION: Limited hepatic steatosis. No bowel obstruction, measure edema, ascites or free intraperitoneal gas. The urinary tract obstruction appreciated.
--- NOTE | 2017-02-16 18:55 | ED PDOC ---
HPI: Abdomen Time Seen by Provider: 02/16/17 14:16 Chief Complaint (Nursing): Abdominal Pain Chief Complaint (Provider): Diffuse abdominal pain, nausea History Per: Patient History/Exam Limitations: no limitations Onset/Duration Of Symptoms: Days Outside of [place] travel?: No Current Symptoms Are (Timing): Still Present Location Of Pain/Discomfort: Diffuse Quality Of Discomfort: Sharp, Cramping Associated Symptoms: Fever, Chills, Nausea, Vomiting, Loss Of Appetite Exacerbating Factors: None Alleviating Factors: None Additional Complaint(s): PT reports symptoms for 3 days since returning from [facility]. PT states her boyfriend has the same. Denies urinary symptoms. Past Medical History Reviewed: Historical Data, Nursing Documentation, Vital Signs Vital Signs: Last Vital Signs Temp 98.8 F 02/16/17 18:22 Pulse 87 02/16/17 18:22 Resp 20 02/16/17 18:22 BP 105/66 02/16/17 18:22 Pulse Ox 99 02/16/17 18:22 - Medical History PMH: Kidney Stones, Chronic Kidney Disease (1 functional kidney - left) Denies: HIV - Surgical History Surgical History: No Surg Hx - Family History Family History: States: Unknown Family Hx - Living Arrangements Living Arrangements: With Family - Social History Current smoker - smoking cessation education provided: No Alcohol: Occasional - Home Medications Home Medications: Ambulatory Orders Medication Instructions Recorded Ciprofloxacin HCl [Cipro] 500 mg PO BID #14 tab 01/06/15 oxyCODONE/Acetaminophen [Percocet 1 ea PO Q4 PRN #20 tab 01/06/15 5/325 mg Tab] Ondansetron [Zofran] 4 mg PO Q8H PRN #5 tab 05/30/15 Naproxen [Naprosyn] 1 tab PO BID PRN #60 tab 11/16/15 oxyCODONE/Acetaminophen [Percocet 1 tab PO QID PRN #20 tab 11/16/15 5/325 mg Tab] Lidocaine 5% [Lidoderm] 1 ea TD DAILY #30 patch 12/13/15 traMADol [Ultram] 50 mg PO Q6 PRN #25 tab 12/13/15 Famotidine [Pepcid] 20 mg PO Q12 #20 tab 03/18/16 Sulfamethoxazole/Trimethoprim 1 tab PO BID #20 tab 03/18/16 [Bactrim DS 800 mg-160 mg] Cyclobenzaprine [Flexeril] 5 mg PO Q8 PRN #10 tab 07/20/16 Naproxen [Naprosyn] 1 tab PO BID PRN #60 tab 07/20/16 Ibuprofen [Motrin Tab] 600 mg PO Q8H #25 tab 08/31/16 Docusate Sodium [Dulcolax Stool 100 mg PO DAILY #12 capsule 09/30/16 Softener] Nitrofurantoin Macrocrystals 100 mg PO BID #14 cap 10/02/16 [Macrobid] - Allergies Allergies/Adverse Reactions: Allergies Allergy/AdvReac Type Severity Reaction Status Date / Time No Known Allergies Allergy Verified 09/30/16 03:14 Review of Systems ROS Statement: Except As Marked, All Systems Reviewed And Found Negative Constitutional: Positive for: Fever, Chills, Sweats Gastrointestinal: Positive for: Nausea, Vomiting, Abdominal Pain Physical Exam - Reviewed Nursing Documentation Reviewed: Yes Vital Signs Reviewed: Yes - Physical Exam Appears: Positive for: Well, Non-toxic, No Acute Distress Head Exam: Positive for: ATRAUMATIC, NORMAL INSPECTION, NORMOCEPHALIC Skin: Positive for: Normal Color, Warm, DRY Eye Exam: Positive for: Normal appearance ENT: Positive for: Normal ENT Inspection Neck: Positive for: Normal, Painless ROM Cardiovascular/Chest: Positive for: Regular Rate, Rhythm Respiratory: Positive for: CNT, Normal Breath Sounds Gastrointestinal/Abdominal: Positive for: Bowel Sounds, Soft, Tenderness ( Diffuse ). Negative for: Normal Exam Back: Positive for: Normal Inspection Extremity: Positive for: Normal ROM Neurologic/Psych: Positive for: Alert, Oriented - Laboratory Results Result Diagrams: 02/16/17 16:00 02/16/17 16:00 - ECG O2 Sat by Pulse Oximetry: 99 Medical Decision Making Medical Decision Making: CT normal. Labs normal. Dip normal. Disposition - Clinical Impression Clinical Impression: Abdominal pain in female - Patient ED Disposition Is Patient to be Admitted: No Counseled Patient/Family Regarding: Diagnosis, Need For Followup - Disposition Disposition: Routine/Home Disposition Time: 18:37 Condition: STABLE Instructions: Acute Abdominal Pain (ED) Forms: [employer] (South Sudanese)
== END 2017-02-16 19:43 | disposition home or self-care (01) ==
LOC: H.ER 13:50
DX: R10.9 Unspecified abdominal pain (principal); K76.0 Fatty (change of) liver, not elsewhere classified; Z87.442 Personal history of urinary calculi
CPT/HCPCS: 74177; 80053; 81025; 83690; 85025; 96374; 96375; 99284; J1885; J2270; J2405; J7040; Q9967

== ENCOUNTER 2017-04-10 18:56 | Emergency (ER) | payer MEDICAID ==
[2017-04-10 18:56] VITALS: BMI 24.0
[2017-04-10 19:38] VITALS: BP 130/62; PULSE 85; RESP 16; TEMP 98.5; O2SAT 98
--- NOTE | 2017-04-10 20:52 | ED PDOC ---
HPI: Headache Time Seen by Provider: 04/10/17 19:51 Chief Complaint (Nursing): Dizziness/Lightheaded Chief Complaint (Provider): Headache History Per: Patient History/Exam Limitations: no limitations Onset/Duration Of Symptoms: Other (one month) Current Symptoms Are (Timing): Still Present Associated Symptoms: denies: Blurred Vision, Nausea, Extremity Weakness Additional Complaint(s): Deborah Astudillo, a 21 year old female presents to the Emergency Department complaining of general headache onset a month ago. Reports the headache is not associated with trauma. Denies fever or nausea. Also states no blurry vision, no dizziness, or weakness. PMD: Gertrude Campoverde Past Medical History Reviewed: Historical Data, Nursing Documentation, Vital Signs Vital Signs: Last Vital Signs Temp 98.5 F 04/10/17 19:35 Pulse 85 04/10/17 19:35 Resp 16 04/10/17 19:35 BP 130/62 04/10/17 19:35 Pulse Ox 98 04/10/17 19:35 - Medical History PMH: Kidney Stones, Chronic Kidney Disease (1 functional kidney - left) Denies: HIV - Family History Family History: States: Unknown Family Hx - Home Medications Home Medications: Ambulatory Orders Medication Instructions Recorded Ciprofloxacin HCl [Cipro] 500 mg PO BID #14 tab 01/06/15 oxyCODONE/Acetaminophen [Percocet 1 ea PO Q4 PRN #20 tab 01/06/15 5/325 mg Tab] Ondansetron [Zofran] 4 mg PO Q8H PRN #5 tab 05/30/15 Naproxen [Naprosyn] 1 tab PO BID PRN #60 tab 11/16/15 oxyCODONE/Acetaminophen [Percocet 1 tab PO QID PRN #20 tab 11/16/15 5/325 mg Tab] Lidocaine 5% [Lidoderm] 1 ea TD DAILY #30 patch 12/13/15 traMADol [Ultram] 50 mg PO Q6 PRN #25 tab 12/13/15 Famotidine [Pepcid] 20 mg PO Q12 #20 tab 03/18/16 Sulfamethoxazole/Trimethoprim 1 tab PO BID #20 tab 03/18/16 [Bactrim DS 800 mg-160 mg] Cyclobenzaprine [Flexeril] 5 mg PO Q8 PRN #10 tab 07/20/16 Naproxen [Naprosyn] 1 tab PO BID PRN #60 tab 07/20/16 Ibuprofen [Motrin Tab] 600 mg PO Q8H #25 tab 08/31/16 Docusate Sodium [Dulcolax Stool 100 mg PO DAILY #12 capsule 09/30/16 Softener] Nitrofurantoin Macrocrystals 100 mg PO BID #14 cap 10/02/16 [Macrobid] Ondansetron ODT [Zofran ODT] 4 mg PO QID #20 odt 02/16/17 traMADol [Ultram] 50 mg PO Q8 #10 tab 04/10/17 - Allergies Allergies/Adverse Reactions: Allergies Allergy/AdvReac Type Severity Reaction Status Date / Time No Known Allergies Allergy Verified 09/30/16 03:14 Review of Systems ROS Statement: Except As Marked, All Systems Reviewed And Found Negative Constitutional: Negative for: Fever, Other (dizziness) Eyes: Negative for: Vision Change Gastrointestinal: Negative for: Nausea Neurological: Positive for: Headache. Negative for: Weakness, Dizziness Physical Exam - Reviewed Nursing Documentation Reviewed: Yes Vital Signs Reviewed: Yes - Physical Exam Appears: Positive for: Well, Non-toxic, No Acute Distress Head Exam: Positive for: ATRAUMATIC, NORMAL INSPECTION, NORMOCEPHALIC Skin: Positive for: Normal Color, Warm, Dry Eye Exam: Positive for: Normal appearance, EOMI, PERRL ENT: Positive for: Normal ENT Inspection Neck: Positive for: Normal, Painless ROM, Supple Back: Positive for: Normal Inspection. Negative for: L CVA Tenderness, R CVA Tenderness Extremity: Positive for: Normal ROM, Tenderness (left axillary region, mild tenderness frontal sinus and maxillary sinus), Other (1cm sebaceous cyst). Negative for: Pedal Edema, Deformity Neurologic/Psych: Positive for: Alert, Oriented (x3), Gait - ECG O2 Sat by Pulse Oximetry: 98 (RA) Pulse Ox Interpretation: Normal Medical Decision Making Medical Decision Making: Time: 20:17 Initial Plan: --Head w/o contrast --Ultram 50mg PO --Reevaluation Documented by Graciela Gresham acting as a scribe for Jason Victor MD. All medical record entries made by the Scribe were at my direction and personally dictated by me. I have reviewed the chart and agree that the record accurately reflects my personal performance of the history, physical exam, medical decision making, and the department course for this patient. I have also personally directed, reviewed, and agree with the discharge instructions and disposition. Disposition - Clinical Impression Clinical Impression: Migraine - Patient ED Disposition Is Patient to be Admitted: No - Disposition Referrals: Karen Henderson MD [Medical Doctor] - Disposition: Routine/Home Disposition Time: 23:27 Condition: FAIR Prescriptions: traMADol [Ultram] 50 mg PO Q8 #10 tab Instructions: Migraine Headache (ED) Forms: [employer] (Hebrew)
--- NOTE | 2017-04-10 23:17 | CT ---
EXAM: CT Head Without Intravenous Contrast EXAM DATE/TIME: 04/10/2017 8:17 PM CLINICAL HISTORY: 21 years old, female; Pain; Headache; Headache not specified TECHNIQUE: Axial computed tomography images of the head/brain without intravenous contrast. All CT scans at this facility use one or more dose reduction techniques, viz.: automated exposure control; ma/kV adjustment per patient size (including targeted exams where dose is matched to indication; i.e. head); or iterative reconstruction technique. Coronal and sagittal reformatted images were created and reviewed. COMPARISON: CT - HEAD W/O CONTRAST 2016-10-02 01:43 FINDINGS: No intracranial hemorrhage. No intracranial edema. No evidence of infarct. The sinuses and mastoid air cells are clear. IMPRESSION: No acute findings.
== END 2017-04-10 23:40 | disposition home or self-care (01) ==
LOC: H.ER 18:56
DX: G43.909 Migraine, unspecified, not intractable, without status migrainosus (principal); Z87.442 Personal history of urinary calculi

== ENCOUNTER 2018-01-12 03:04 | Emergency (ER) | payer MEDICAID ==
[2018-01-12 03:04] VITALS: BMI 24.0
--- NOTE | 2018-01-12 03:26 | ED PDOC ---
HPI: Abdomen Chief Complaint (Provider): abdominal pain History Per: Patient (22 y/o female here with lower abdominal pain sudden onset that occurred prior to ED arrival. Patient denies any dysuria/hematuria. Notes loewr abdominal pain generalized. Denies any vomiting. Has h/o one kidney. has h/o ovarian cysts. Was taken off Depo but still has not had menstrual cycle.) <Jayme Cancino - Last Filed: 01/12/18 05:56> <Milton Salvador - Last Filed: 01/12/18 06:32> Time Seen by Provider: 01/12/18 03:24 Chief Complaint (Nursing): Abdominal Pain Past Medical History Reviewed: Historical Data, Nursing Documentation, Vital Signs Vital Signs: Last Vital Signs Temp 98 F 01/12/18 03:12 Pulse 87 01/12/18 03:12 Resp 15 01/12/18 03:12 BP 122/75 01/12/18 03:12 Pulse Ox 98 01/12/18 03:12 - Medical History PMH: Kidney Stones, Chronic Kidney Disease (1 functional kidney - left) Denies: HIV - Family History Family History: States: Unknown Family Hx <Jayme Cancino - Last Filed: 01/12/18 05:56> Vital Signs: Last Vital Signs Temp 98 F 01/12/18 03:12 Pulse 87 01/12/18 03:12 Resp 15 01/12/18 03:12 BP 122/75 01/12/18 03:12 Pulse Ox 98 01/12/18 05:56 <Milton Salvador - Last Filed: 01/12/18 06:32> - Home Medications Home Medications: Ambulatory Orders Medication Instructions Recorded Ciprofloxacin HCl [Cipro] 500 mg PO BID #14 tab 01/06/15 oxyCODONE/Acetaminophen [Percocet 1 ea PO Q4 PRN #20 tab 01/06/15 5/325 mg Tab] Ondansetron [Zofran] 4 mg PO Q8H PRN #5 tab 05/30/15 Naproxen [Naprosyn] 1 tab PO BID PRN #60 tab 11/16/15 oxyCODONE/Acetaminophen [Percocet 1 tab PO QID PRN #20 tab 11/16/15 5/325 mg Tab] Lidocaine 5% [Lidoderm] 1 ea TD DAILY #30 patch 12/13/15 traMADol [Ultram] 50 mg PO Q6 PRN #25 tab 12/13/15 Famotidine [Pepcid] 20 mg PO Q12 #20 tab 03/18/16 Sulfamethoxazole/Trimethoprim 1 tab PO BID #20 tab 03/18/16 [Bactrim DS 800 mg-160 mg] Cyclobenzaprine [Flexeril] 5 mg PO Q8 PRN #10 tab 07/20/16 Naproxen [Naprosyn] 1 tab PO BID PRN #60 tab 07/20/16 Ibuprofen [Motrin Tab] 600 mg PO Q8H #25 tab 08/31/16 Docusate Sodium [Dulcolax Stool 100 mg PO DAILY #12 capsule 09/30/16 Softener] Nitrofurantoin Macrocrystals 100 mg PO BID #14 cap 10/02/16 [Macrobid] Ondansetron ODT [Zofran ODT] 4 mg PO QID #20 odt 02/16/17 traMADol [Ultram] 50 mg PO Q8 #10 tab 04/10/17 - Allergies Allergies/Adverse Reactions: Allergies Allergy/AdvReac Type Severity Reaction Status Date / Time No Known Allergies Allergy Verified 01/12/18 03:15 Review of Systems ROS Statement: Except As Marked, All Systems Reviewed And Found Negative <Jayme Cancino B - Last Filed: 01/12/18 05:56> Physical Exam - Reviewed Nursing Documentation Reviewed: Yes Vital Signs Reviewed: Yes - Physical Exam Appears: Positive for: Well, Non-toxic, No Acute Distress Head Exam: Positive for: ATRAUMATIC, NORMAL INSPECTION, NORMOCEPHALIC Skin: Positive for: Normal Color, Warm, DRY Eye Exam: Positive for: EOMI, Normal appearance, PERRL ENT: Positive for: Normal ENT Inspection Neck: Positive for: Normal, Painless ROM Cardiovascular/Chest: Positive for: Regular Rate, Rhythm Respiratory: Positive for: CNT, Normal Breath Sounds Gastrointestinal/Abdominal: Positive for: Normal Exam, Soft Pelvic Exam: Positive for: Tender Adnexa (RIGHT ADNEXAL TENDERNESS; NO CMT; NO VAGINAL DISCHARGE; NORMAL CERVIX) Back: Positive for: Normal Inspection Extremity: Positive for: Normal ROM Neurologic/Psych: Positive for: Alert, Oriented <Cancino,Setu B - Last Filed: 01/12/18 05:56> - Laboratory Results Result Diagrams: 01/12/18 03:40 01/12/18 03:40 Urine POC: Negative - ECG O2 Sat by Pulse Oximetry: 98 - Progress ED Course And Treament: morphine 2 mg iv x 1 dose CX FOR GONORRHEA/CHLAMYDIA SENT <Jayme Cancino B - Last Filed: 01/12/18 05:56> - Laboratory Results Result Diagrams: 01/12/18 03:40 01/12/18 03:40 <Milton Salvador - Last Filed: 01/12/18 06:32> Medical Decision Making Medical Decision Making: CT RESULTS FINDINGS: LUNG BASES: The lung bases appear clear. No pleural effusions are seen. LIVER: Unremarkable. GALLBLADDER AND BILE DUCTS: The gallbladder appears within normal limits. No radioopaque gallstones are s een. No biliary ductal dilatation is evident. PANCREAS: Unremarkable. SPLEEN: Unremarkable. ADRENAL GLANDS: Unremarkable. KIDNEYS, URETERS, AND BLADDER: Right renal agenesis. Enlarged left kidney, 14 cm, unremarkable otherwise. No renal stones, calculus or hydronephrosis. STOMACH AND BOWEL: Unremarkable appearance of the stomach and bowel. No evidence of bowel obstruction. No evidence suggesting enteritis or colitis. APPENDIX: No evidence of acute appendicitis on CT examination. PERITONEUM: No free fluid. No free air. LYMPH NODES: No lymphadenopathy is evident. REPRODUCTIVE: Large amount of fluid in the cul-de-sac associated with marked inflammatory stranding especially in the region of right adnexa. This may represent recent rupture of a large ovarian cyst. Nevertheless further evaluation is recommended with pelvic US and CT performed with IV/oral contrast. Uterus is anteverted and deviated to the right. VASCULATURE: No evidence of abdominal aortic aneurysm. BONES: No aggressive appearing osseous lesion. No acute osseous pathology evident. IMPRESSION: 1. Right renal agenesis. Enlarged left kidney, 14 cm. No renal stones, calculus or hydronephrosis. 2. Large amount of fluid in the cul-de-sac associated with marked inflammatory stranding especially in the region of right adnexa. This may represent recent rupture of a large ovarian cyst. Nevertheless further evaluation is recommended with pelvic US and CT performed with IV/oral contrast. Electronically signed on Jan 12, 2018 5:58:50 AM EST by: Vasiliy Todd M.D., NIKUNJ Certified By [facility] Fellowship Trained MRI and CT Specialist Time: 540 -- Transvaginal US ordered by Jayme Cancino PA-C. Time: 699 -- Patient endorsed to Dr. Pelaez, pending US, re-evaluation and final ER disposition. Scribe Attestation: Documented by Flower Good, acting as a scribe for Milton Salvador MD. Provider Scribe Attestation: All medical record entries made by the Scribe were at my direction and personally dictated by me. I have reviewed the chart and agree that the record accurately reflects my personal performance of the medical decision making and disposition for this patient. I have also personally directed, reviewed, and agree with the discharge instructions and disposition. <Milton Salvador - Last Filed: 01/12/18 06:32> Disposition - Patient ED Disposition Is Patient to be Admitted: Transfer of Care - Disposition Disposition: Transfer of Care Disposition Time: 06:00 Patient Signed Over To: Milton Salvador Handoff Comments: PENDING CT RESULTS. PENDING TRANSVAG US <Jayme Cancino - Last Filed: 01/12/18 05:56> - Patient ED Disposition Is Patient to be Admitted: Transfer of Care - Disposition Disposition: Transfer of Care Disposition Time: 07:00 Patient Signed Over To: Thalia Pelaez Handoff Comments: pending US, re-evaluation and final ER disposition. <Milton Salvador - Last Filed: 01/12/18 06:32> - Clinical Impression Clinical Impression: Abdominal discomfort - Disposition Condition: FAIR
[2018-01-12 03:50] LABS: BASO # 0.1 K/uL (0.0-0.2); EOS # 0.1 K/uL (0.0-0.7); EOS % 1.5 % (0.0-4.0); HEMOGLOBIN 11.9 g/dL (12.0-16.0); LYMPH # 1.5 K/uL (1.0-4.3); LYMPH % 17.6 % (20.0-40.0); MEAN CORPUSCULAR HEMOGLOBIN 30.9 pg (27.0-31.0); MEAN CORPUSCULAR HGB CONC 33.2 g/dL (33.0-37.0); MEAN PLATELET VOLUME 8.6 fl (7.2-11.7); MONO # 0.5 K/uL (0.0-0.8); MONO % 6.3 % (0.0-10.0); NEUT # 6.3 K/uL (1.8-7.0); NEUT % 73.6 % (50.0-75.0); RBC 3.87 Mil/uL (3.80-5.20); RED CELL DISTRIBUTION WIDTH 12.3 % (11.5-14.5); WHITE BLOOD COUNT 8.6 K/uL (4.8-10.8)
[2018-01-12 03:53] LABS: SQUAMOUS EPITHIAL 7 /hpf (0-5); URINE BACTERIA RARE (<OCC); URINE BILIRUBIN NEGATIVE (NEGATIVE); URINE BLOOD SMALL (NEGATIVE); URINE CLARITY CLOUDY (Clear); URINE COLOR YELLOW (YELLOW); URINE GLUCOSE (UA) NEG (Normal); URINE LEUKOCYTE ESTERASE NEG Leu/uL (Negative); URINE PROTEIN NEGATIVE (NEGATIVE); URINE UROBILINOGEN 0.2-1.0 mg/dL (0.2-1.0)
[2018-01-12 04:02] LABS: ALB/GLOB RATIO 1.2 (1.0-2.1); ALBUMIN 3.8 g/dL (3.5-5.0); ALT/SGPT 36 U/L (9-52); AST/SGOT 26 U/L (14-36); BLOOD UREA NITROGEN 13 mg/dl (7-17); CALCIUM 9.5 mg/dL (8.4-10.2); GFR NON-AFRICAN AMERICAN > 60; LIPASE 58 U/L (23-300)
[2018-01-12] MEDS ORDERED: Sodium Chloride 0.9% 1,000 ML IV STA (06:03)
[2018-01-12] MEDS ORDERED: Glucagon Recombinant 1 mg Inj IM ONE (07:07)
--- NOTE | 2018-01-12 08:15 | ED PDOC ---
- Laboratory Results Result Diagrams: 01/12/18 03:40 01/12/18 03:40 Urine POC: Negative - ECG O2 Sat by Pulse Oximetry: 98 - Radiology X-Ray: Read By Radiologist X-Ray Interpretation: No Acute Disease (except for fluid in the pelvis) Medical Decision Making Medical Decision Making: received patient from Dr. Salvador. Patient is pending US pelvis for evaluation of the right adnexa. Disposition Doctor Will See Patient In The: Office Counseled Patient/Family Regarding: Diagnosis, Need For Followup - Clinical Impression Clinical Impression: Ruptured cyst of ovary - POA Present On Arrival: None - Disposition Referrals: [facility] [Outside] [facility] [Outside] Disposition: Routine/Home Disposition Time: 10:30 Condition: STABLE Instructions: Ovarian Cysts Forms: [facility] (Bulgarian)
--- NOTE | 2018-01-12 10:07 | CT ---
Date of service: 01/12/2018 PROCEDURE: CT Abdomen and Pelvis without intravenous contrast HISTORY: sudden lower abdominal pain COMPARISON: 02/16/2017 CT scan, ultrasound examination 08/31/2016 TECHNIQUE: CT scan of the abdomen and pelvis was performed without the use of intravenous contrast. Multiple helical axial images were performed without the use of oral contrast. Reformatted sagittal and coronal images were performed.. Contrast dose: No IV contrast. Radiation dose: Total exam DLP = 596.81 mGy-cm. This CT exam was performed using one or more of the following dose reduction techniques: Automated exposure control, adjustment of the mA and/or kV according to patient size, and/or use of iterative reconstruction technique. FINDINGS: LOWER THORAX: Unremarkable. Visualized distal esophagus is within normal limits. Visualized stomach is normal in outline without wall thickening. Duodenum is within normal limits. No pericardial effusion or pleural effusion is seen. LIVER: No interval change from prior examination on this noncontrast exam. No new focal liver mass or intrahepatic ductal dilatation. GALLBLADDER AND BILE DUCTS: Unremarkable. PANCREAS: Unremarkable. No gross lesion or ductal dilatation. SPLEEN: Unremarkable. ADRENALS: Unremarkable. No mass. KIDNEYS AND URETERS: Absent right kidney. Hypertrophic left kidney without hydronephrosis, calculus, or mass. No perinephric changes of the left kidney. VASCULATURE: Unremarkable. No aortic aneurysm. No aortic atherosclerotic calcification or mural plaque present. BOWEL: No bowel wall thickening or pericolonic inflammatory change noted. No bowel obstruction is identified. Small bowel is within normal limits. APPENDIX: Unremarkable. Normal appendix. PERITONEUM: There is evidence of ascites within the upper abdomen adjacent to the liver. This is more than likely related to larger ascites seen within the pelvis. There is also some nonspecific induration seen within the right anterior pelvic mesentery or fat, nonspecific. This is best seen on axial images 127 through 146 series 3 and also seen on coronal images 32 through 38. LYMPH NODES: Unremarkable. No enlarged lymph nodes. BLADDER: Unremarkable. 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 There is moderate amounts of fluid seen within the lower pelvis, nonspecific. Small amount of air is noted within the vagina which may be related to manipulation and examination. BONES: No acute fracture. OTHER FINDINGS: None. IMPRESSION: Nonspecific mild to moderate amount of pelvic fluid seen posteriorly and anteriorly within the pelvis. There is a mild amount of nonspecific induration within the right anterior pelvic fat. Findings may reflect recent ovarian cyst rupture. Ultrasound was recommended on the preliminary report. No appreciable free intraperitoneal air, bowel obstruction, or bowel wall thickening to suggest colitis. Uterine didelphys. Absent right kidney. This report agrees with preliminary report except for the mild induration seen within the anterior right pelvic fat.
--- NOTE | 2018-01-12 10:23 | US ---
Date of service: 01/12/2018 HISTORY: right adnexal tenderness COMPARISON: CT scan same day. Ultrasound 08/31/2016 TECHNIQUE: Real-time transvaginal ultrasound examination of the pelvis was performed. FINDINGS: UTERUS: Measures cm. There is evidence of uterine didelphys previously identified on the prior ultrasound exam. Right uterine horn measures 7.2 x 3 x 3.3 centimeters. Left uterine horn measures 8.6 x 3 x 4.3 centimeters. Endometrial complex on the right measures 2 millimeters although there is a small nonspecific echogenic focus within the endometrial canal measuring 5 millimeters x 3 millimeters x 4 millimeters. Tiny uterine polyp is not excluded. The endometrial complex of the left uterine horn measures 10 millimeters. There is additionally some nonspecific echogenic foci within the lower uterine segment region of the endometrial canal. ENDOMETRIUM: See above. CERVIX: No uterine masses seen. RIGHT OVARY: Measures 5.2 x 2.2 x 4.8 cm. No solid mass. Normal flow. LEFT OVARY: Left ovary was not identified. No left adnexal masses however were seen. FREE FLUID: Moderate free fluid within the pelvis. OTHER FINDINGS: None. IMPRESSION: Nonspecific moderate free fluid within the pelvis. No gross adnexal masses seen. Uterine didelphys. There appear to be the suggestion of a few small echogenic foci within the left endometrial uterine horn canal and a small echogenic focus within the right uterine horn endometrial canal, nonspecific. Overall findings could be related to recent rupture of ovarian cyst. However other etiologies including pelvic inflammatory disease cannot be excluded. Close clinical surveillance of this patient is suggested.
[2018-01-12 11:33] VITALS: BP 108/68; PULSE 90; RESP 16; TEMP 98.2; O2SAT 100
== END 2018-01-12 11:33 | disposition home or self-care (01) ==
LOC: H.ER 03:04
DX: R10.30 Lower abdominal pain, unspecified (principal)
CPT/HCPCS: 74176; 76830; 80053; 81003; 81025; 83690; 85025; 87086; 87491; 87591; 96361; 96374; 96375; 99285; J1885; J2270; J7030

== ENCOUNTER 2018-03-28 23:20 | Emergency (ER) | payer MEDICAID ==
[2018-03-28 23:20] VITALS: BMI 24.0
[2018-03-28 23:37] VITALS: BP 120/61; PULSE 100; RESP 20; TEMP 98.7; O2SAT 100
[2018-03-29] MEDS ORDERED: Amoxicillin-Clav 875-125 mg Tab PO STA (00:11)
[2018-03-29] MEDS ORDERED: Amoxicillin-Clav 875-125 mg Tab PO ONE (00:18)
--- NOTE | 2018-03-29 00:18 | ED PDOC ---
HPI: CCC, URI, Sore Throat Time Seen by Provider: 03/28/18 23:42 Chief Complaint (Nursing): ENT Problem Chief Complaint (Provider): Right ear pain History Per: Patient History/Exam Limitations: no limitations Have you had recent travel within the past 21 days to any of the following countries: [place], [place], [place] or [place]?: No Additional Complaint(s): 22 y/o F with no significant PMH who presents with Right ear pain for the past week. Patient states that she had a cold with runny nose and mild cough approximately 10 days ago which resolved on its own. She then developed Right s ided ear kramer about 1 week ago and saw her PMD 5 days ago at which time she was encouraged to use natural otic drops. Patient had a prescription for Penicillin VK from prior illness, which she started taking that day in agreement with her PMD. Pt states that the ear pain has not improved at all and has only gotten worse. She has been using Flonase as she thought that some of her ear discomfort may be due to nasal congestion. She had ringing in her ear and can no longer hear well out of her right ear. Denies fever, chills, night sweats, sore throat, eye pain. Past Medical History Reviewed: Historical Data, Nursing Documentation, Vital Signs Vital Signs: Last Vital Signs Temp 98.7 F 03/28/18 23:35 Pulse 100 H 03/28/18 23:35 Resp 20 03/28/18 23:35 BP 120/61 03/28/18 23:35 Pulse Ox 100 03/28/18 23:35 - Medical History PMH: Kidney Stones, Chronic Kidney Disease (1 functional kidney - left) Denies: HIV - Family History Family History: States: Unknown Family Hx - Home Medications Home Medications: Ambulatory Orders Medication Instructions Recorded Ciprofloxacin HCl [Cipro] 500 mg PO BID #14 tab 01/06/15 oxyCODONE/Acetaminophen [Percocet 1 ea PO Q4 PRN #20 tab 01/06/15 5/325 mg Tab] Ondansetron [Zofran] 4 mg PO Q8H PRN #5 tab 05/30/15 Naproxen [Naprosyn] 1 tab PO BID PRN #60 tab 11/16/15 oxyCODONE/Acetaminophen [Percocet 1 tab PO QID PRN #20 tab 11/16/15 5/325 mg Tab] Lidocaine 5% [Lidoderm] 1 ea TD DAILY #30 patch 12/13/15 traMADol [Ultram] 50 mg PO Q6 PRN #25 tab 12/13/15 Famotidine [Pepcid] 20 mg PO Q12 #20 tab 03/18/16 Sulfamethoxazole/Trimethoprim 1 tab PO BID #20 tab 03/18/16 [Bactrim DS 800 mg-160 mg] Cyclobenzaprine [Flexeril] 5 mg PO Q8 PRN #10 tab 07/20/16 Naproxen [Naprosyn] 1 tab PO BID PRN #60 tab 07/20/16 Ibuprofen [Motrin Tab] 600 mg PO Q8H #25 tab 08/31/16 Docusate Sodium [Dulcolax Stool 100 mg PO DAILY #12 capsule 09/30/16 Softener] Nitrofurantoin Macrocrystals 100 mg PO BID #14 cap 10/02/16 [Macrobid] Ondansetron ODT [Zofran ODT] 4 mg PO QID #20 odt 02/16/17 traMADol [Ultram] 50 mg PO Q8 #10 tab 04/10/17 Amoxicillin/Clavulanate [Augmentin 1 tab PO BID 7 Days tab 03/29/18 875 MG-125 MG] Neomycin/Polymyxin/Hydrocort 4 drop TOP QID 7 Days bottle 03/29/18 [Cortisporin Otic Soln] - Allergies Allergies/Adverse Reactions: Allergies Allergy/AdvReac Type Severity Reaction Status Date / Time No Known Allergies Allergy Verified 03/28/18 23:35 Physical Exam - Reviewed Nursing Documentation Reviewed: Yes Vital Signs Reviewed: Yes - Physical Exam Appears: Positive for: Uncomfortable Head Exam: Positive for: ATRAUMATIC Skin: Positive for: Normal Color Eye Exam: Positive for: Normal appearance ENT: Positive for: Pharynx Is (normal), TM Is/Are (left normal. Right with yellow white pus occluding canal with mild associated erythema of ear canal. ). Negative for: Sinus Pain/Drainage, Nasal Congestion, Pharyngeal Erythema, Tonsillar Exudate, Tonsillar Swelling Neck: Positive for: Normal Cardiovascular/Chest: Positive for: Regular Rate, Rhythm Respiratory: Positive for: Normal Breath Sounds Lymphatic: Positive for: Normal Exam Neurologic/Psych: Positive for: Alert, Oriented - ECG O2 Sat by Pulse Oximetry: 100 Medical Decision Making Medical Decision Making: Ibuprofen 800mg PO x 1 Augmentin 875mg 1 tab PO daily Pt given a prescription for antibiotic otic drops for possible otitis externa and advised to stop taking Penicillin VK at this time. Disposition - Clinical Impression Clinical Impression: Acute ear infection - Disposition Referrals: Gertrude Campoverde MD [Family Provider] - Condition: STABLE Additional Instructions: Take antibiotic ear drops and oral antibiotic as prescribed. Stop taking Penicillin VK as you will now take Amoxicillin/clavulanic acid (Augmentin). Return to ER if you develop redness and pain behind your right ear or fevers. Take Tylenol or Ibuprofen for pain. Prescriptions: Amoxicillin/Clavulanate [Augmentin 875 MG-125 MG] 1 tab PO BID 7 Days tab Neomycin/Polymyxin/Hydrocort [Cortisporin Otic Soln] 4 drop TOP QID 7 Days bottle Forms: [employer] (Kazakh)
== END 2018-03-29 01:07 | disposition home or self-care (01) ==
LOC: H.ER 23:20
DX: H66.91 Otitis media, unspecified, right ear (principal); N18.9 Chronic kidney disease, unspecified; Z87.442 Personal history of urinary calculi

== ENCOUNTER 2018-04-13 14:30 | Emergency (ER) | payer MEDICAID ==
[2018-04-13 14:30] VITALS: BMI 24.0
[2018-04-13 14:40] VITALS: O2SAT 100
[2018-04-13] MEDS ORDERED: Naproxen 500 MG TAB PO STA (14:58)
[2018-04-13] MEDS ORDERED: Naproxen 500 MG TAB PO ONE (15:02)
[2018-04-13] MEDS ORDERED: Ciprofloxacin/Dexamethasone OTIC SUSP AD STA (15:06)
--- NOTE | 2018-04-13 15:22 | ED PDOC ---
HPI: General Adult Time Seen by Provider: 04/13/18 14:41 Chief Complaint (Nursing): ENT Problem Chief Complaint (Provider): Right Ear pain History Per: Patient History/Exam Limitations: no limitations Onset/Duration Of Symptoms: Days (2.5 weeks) Current Symptoms Are (Timing): Still Present Recently: Seen In ED Additional Complaint(s): 22 year old female with no significant medical history presents to the ED for evaluation of persistent right ear pain for 2.5 weeks. She states since onset of symptoms, she has experienced tinnitus and an intermittent headache. Patient was seen in this ED on 03/28/2018 for the same symptoms and discharged with Augmentin (completed) and antibiotic ear drops (still using), which she has been compliant with. She followed up with her PMD after the ED visit and was advised to continue the prescribed medications. Patient reports continued symptoms and radiation of pain to the jaw and right side of her head, despite use of medications. Pain is ranked as 4/10. LMP was 04/08/2018. She offers no other complaints. Denies fever, throat pain, difficulty speaking or swallowing, neck pain/stiffness, recent travel, sick contacts. PMD: Dr. Campoverde Past Medical History Reviewed: Historical Data, Nursing Documentation, Vital Signs Vital Signs: Last Vital Signs Temp 98.5 F 04/13/18 14:36 Pulse 71 04/13/18 14:36 Resp 19 04/13/18 14:36 BP 113/73 04/13/18 14:36 Pulse Ox 100 04/13/18 14:36 - Medical History PMH: Kidney Stones, Chronic Kidney Disease (1 functional kidney - left) - Surgical History Other surgeries: Rhinoplasty - Family History Family History: States: Unknown Family Hx - Home Medications Home Medications: Ambulatory Orders Medication Instructions Recorded Ciprofloxacin HCl [Cipro] 500 mg PO BID #14 tab 01/06/15 oxyCODONE/Acetaminophen [Percocet 1 ea PO Q4 PRN #20 tab 01/06/15 5/325 mg Tab] Ondansetron [Zofran] 4 mg PO Q8H PRN #5 tab 05/30/15 RX: Naproxen [Naprosyn] 1 tab PO BID PRN #60 tab 11/16/15 oxyCODONE/Acetaminophen [Percocet 1 tab PO QID PRN #20 tab 11/16/15 5/325 mg Tab] Lidocaine 5% [Lidoderm] 1 ea TD DAILY #30 patch 12/13/15 RX: traMADol [Ultram] 50 mg PO Q6 PRN #25 tab 12/13/15 Famotidine [Pepcid] 20 mg PO Q12 #20 tab 03/18/16 Sulfamethoxazole/Trimethoprim 1 tab PO BID #20 tab 03/18/16 [Bactrim DS 800 mg-160 mg] Cyclobenzaprine [Flexeril] 5 mg PO Q8 PRN #10 tab 07/20/16 RX: Naproxen [Naprosyn] 1 tab PO BID PRN #60 tab 07/20/16 RX: Ibuprofen [Motrin Tab] 600 mg PO Q8H #25 tab 08/31/16 Docusate Sodium [Dulcolax Stool 100 mg PO DAILY #12 capsule 09/30/16 Softener] Nitrofurantoin Macrocrystals 100 mg PO BID #14 cap 10/02/16 [Macrobid] Ondansetron ODT [Zofran ODT] 4 mg PO QID #20 odt 02/16/17 RX: traMADol [Ultram] 50 mg PO Q8 #10 tab 04/10/17 Amoxicillin/Clavulanate [Augmentin 1 tab PO BID 7 Days tab 03/29/18 875 MG-125 MG] RX: Ibuprofen [Motrin Tab] 800 mg PO Q6 PRN 7 Days tab 03/29/18 RX: Neomycin/Polymyxin/Hydrocort 4 drop TOP QID 7 Days bottle 03/29/18 [Cortisporin Otic Soln] Ciprofloxacin/Dexamethasone 4 drop AD BID #1 bottle 04/13/18 [Ciprodex Otic] RX: Naproxen 500 mg PO BID PRN #20 tab 04/13/18 - Allergies Allergies/Adverse Reactions: Allergies Allergy/AdvReac Type Severity Reaction Status Date / Time No Known Allergies Allergy Verified 03/28/18 23:35 Review of Systems ROS Statement: Except As Marked, All Systems Reviewed And Found Negative ENT: Positive for: Ear Pain, Other (jaw pain) Neurological: Positive for: Headache Physical Exam - Reviewed Nursing Documentation Reviewed: Yes Vital Signs Reviewed: Yes - Physical Exam Comments: GENERAL APPEARANCE: Patient is awake, alert, oriented x 3, in no acute distress. Resting comfortably. SKIN: Warm, dry; (-) cyanosis. ENMT: Canals: right ear canal occluded by purulent yellow-whitish exudate, (+) erythema, (+) pain with tragus/helix movement; (+) tenderness to pre and post auricular space (?) mastoid tenderness. Left ear canal unremarkable. TMs: Right: unable to visualize. Left: (-)bulging (-) erythema, (-)effusion, (-) perforation,(-) vesicles. Frontal / maxillary sinuses: (-) tenderness. (-) TMJ tenderness. Pharynx: Clear, uvula midline (-) erythema, (-) exudate. Airway patent: (-) stridor. Mucus membranes moist. NECK: Supple, FROM (-) stiffness, (-) tenderness, (-) lymphadenopathy. LUNGS: clear to auscultation bilaterally, (-) wheezing, (-) rhonchi, (-) rales. Respirations even and nonlabored. CARDIAC: RRR - Laboratory Results Urine POC: Negative - ECG O2 Sat by Pulse Oximetry: 100 (RA) Pulse Ox Interpretation: Normal Medical Decision Making Medical Decision Makin Impression: otitis externa of right ear, rule out mastoiditis Initial Plan: --Inner ear/temporal bone CT without contrast --Urine preg --Glucose POC --Ciprodex Otic 4 drops AD --Naproxen 500 mg PO Accucheck: 120. Upreg: negative 1630 Patient sleeping comfortably on re-evaluation. Pending CT read. 1740 CT reviewed, radiology report follows Date of service: 04/13/2018 PROCEDURE: CT OF THE TEMPORAL BONES WITHOUT CONTRAST HISTORY: persistent otitis externa of R ear, r/o mastoid COMPARISON: None available. TECHNIQUE: High resolution axial images of the temporal bones were obtained. Coronal and sagittal reformats were generated. Radiation dose: Total exam DLP = 791.35 mGy-cm. This CT exam was performed using one or more of the following dose reduction techniques: Automated exposure control, adjustment of the mA and/or kV according to patient size, and/or use of iterative reconstruction technique. FINDINGS: RIGHT TEMPORAL BONE: RIGHT MIDDLE EAR: Normal appearing ossicular chain, aeration and development. No soft tissue or fluid collection. The oval and round window niches appear intact. RIGHT INNER EAR: Cochlea: Normal density and development. Semicircular canals: Normal density and development. RIGHT MASTOID AIR CELLS: Normal. RIGHT INTERNAL AUDITORY CANAL: Normal. RIGHT EXTERNAL AUDITORY CANAL: Soft tissues identified in the majority of the external auditory canal potentially reflecting mass or cerumen. Direct inspection recommended. RIGHT VESTIBULAR AND COCHLEAR AQUEDUCT: Normal. OTHER FINDINGS: None. LEFT TEMPORAL BONE: LEFT MIDDLE EAR: Normal appearing ossicular chain, aeration and development. No soft tissue or fluid collection. The scutum appears intact. The oval and round window niches appear intact. LEFT INNER EAR: Cochlea: Normal density and development. Semicircular canals: Normal density and development. LEFT MASTOID AIR CELLS: Normal. LEFT INTERNAL AUDITORY CANAL: Normal. LEFT EXTERNAL AUDITORY CANAL: Normal. LEFT VESTIBULAR AND COCHLEAR AQUEDUCTS: Normal. OTHER FINDINGS: None. IMPRESSION: 1. Soft tissue occludes the right external auditory canal potentially reflecting cerumen though mass is not excluded. Direct inspection recommended. 2. Left external auditory canal unremarkable as bilateral middle and inner ear anatomy, mastoid air cell complexes and internal auditory canals. No fracture or destructive bony lesion appreciated. On re-evaluation, patient reports improvement of symptoms. On exam, patient remains AAOx3, in no acute distress. Vitals stable. Lab/Diagnostic results d/w the patient in great detail. Diagnosis of otitis externa of right ear d/w the patient. Based on history, exam and diagnostic results, plan will be for outpatient follow up with PMD/ENT. Patient instructed to follow-up with pmd / referral provided / the clinic in 1- 2 days without fail. Advised to take medication as prescribed. Return to the emergency room at any time for any new or worsening symptoms. Patient states she fully agrees with and understands discharge instructions. States that she agrees with the plan and disposition. Verbalized and repeated discharge instructions and plan. I have given the patient opportunity to ask any additional questions. Scribe Attestation: Documented by Daly Brink, acting as a scribe for Sulma Pittman PA-C Provider Scribe Attestation: All medical record entries made by the Scribe were at my direction and personally dictated by me. I have reviewed the chart and agree that the record accurately reflects my personal performance of the history, physical exam, medical decision making, and the department course for this patient. I have also personally directed, reviewed, and agree with the discharge instructions and disposition. Disposition - Clinical Impression Clinical Impression: Otitis externa of right ear, Otalgia of right ear - Patient ED Disposition Is Patient to be Admitted: No Counseled Patient/Family Regarding: Studies Performed, Diagnosis, Need For Followup, Rx Given - Disposition Referrals: Gertrude Campoverde MD [Staff Provider] - Fredy Seay MD [Staff Provider] - Disposition: Routine/Home Disposition Time: 17:40 Condition: STABLE Additional Instructions: FOLLOW UP WITH ENT SPECIALIST (DR SEAY) SOON POSSIBLE. The emergency medical care you received today was directed at your acute symptoms. If you were prescribed any medication, please fill it and take as directed. It may take several days for your symptoms to resolve. Return to the Emergency Department if your symptoms worsen, do not improve, or if you have any other problems. Please contact your doctor in 2 days for re-evaluation and follow up / or call one of the physicians/clinics you have been referred to that are listed on the Patient Visit Information form that is included in your discharge packet. Bring any paperwork you were given at discharge with you along with any medications you are taking to your follow up visit. Our treatment cannot replace ongoing medical care by a primary care provider (PCP) outside of the emergency department. Prescriptions: Ciprofloxacin/Dexamethasone [Ciprodex Otic] 4 drop AD BID #1 bottle RX: Naproxen 500 mg PO BID PRN #20 tab PRN Reason: Pain, Moderate (4-7) Instructions: Outer Ear Infection Forms: [employer] (Turkish) Print Language: SERBIAN - POA Present On Arrival: None
--- NOTE | 2018-04-13 17:37 | CT ---
Date of service: 04/13/2018 PROCEDURE: CT OF THE TEMPORAL BONES WITHOUT CONTRAST HISTORY: persistent otitis externa of R ear, r/o mastoid COMPARISON: None available. TECHNIQUE: High resolution axial images of the temporal bones were obtained. Coronal and sagittal reformats were generated. Radiation dose: Total exam DLP = 791.35 mGy-cm. This CT exam was performed using one or more of the following dose reduction techniques: Automated exposure control, adjustment of the mA and/or kV according to patient size, and/or use of iterative reconstruction technique. FINDINGS: RIGHT TEMPORAL BONE: RIGHT MIDDLE EAR: Normal appearing ossicular chain, aeration and development. No soft tissue or fluid collection. The oval and round window niches appear intact. RIGHT INNER EAR: Cochlea: Normal density and development. Semicircular canals: Normal density and development. RIGHT MASTOID AIR CELLS: Normal. RIGHT INTERNAL AUDITORY CANAL: Normal. RIGHT EXTERNAL AUDITORY CANAL: Soft tissues identified in the majority of the external auditory canal potentially reflecting mass or cerumen. Direct inspection recommended. RIGHT VESTIBULAR AND COCHLEAR AQUEDUCT: Normal. OTHER FINDINGS: None. LEFT TEMPORAL BONE: LEFT MIDDLE EAR: Normal appearing ossicular chain, aeration and development. No soft tissue or fluid collection. The scutum appears intact. The oval and round window niches appear intact. LEFT INNER EAR: Cochlea: Normal density and development. Semicircular canals: Normal density and development. LEFT MASTOID AIR CELLS: Normal. LEFT INTERNAL AUDITORY CANAL: Normal. LEFT EXTERNAL AUDITORY CANAL: Normal. LEFT VESTIBULAR AND COCHLEAR AQUEDUCTS: Normal. OTHER FINDINGS: None. IMPRESSION: 1. Soft tissue occludes the right external auditory canal potentially reflecting cerumen though mass is not excluded. Direct inspection recommended. 2. Left external auditory canal unremarkable as bilateral middle and inner ear anatomy, mastoid air cell complexes and internal auditory canals. No fracture or destructive bony lesion appreciated.
[2018-04-13 17:58] VITALS: BP 115/79; PULSE 83; RESP 20; TEMP 98.1
== END 2018-04-13 17:59 | disposition home or self-care (01) ==
LOC: H.ER 14:30
DX: H60.91 Unspecified otitis externa, right ear (principal); H92.01 Otalgia, right ear; N18.9 Chronic kidney disease, unspecified; Z87.442 Personal history of urinary calculi